=== PATIENT | male | born 1940 | race Caucasian/White ===

== ENCOUNTER → 2024-05-08 14:40 | Outpatient (RCR) | payer OTHER, SELFPAY ==
--- NOTE | 2020-10-19 15:14 | MHC.HEMONC ---
pt daughter, beto, request telehealth due to snow. verbal order for home lab draw given to Alejandra from [facility] ([phone]). CBCD, CMP, AND IMMUNOFIXATION to be drawn by the end of this week and faxed.
--- NOTE | 2020-10-20 11:52 | HO.HEMONCTE1 ---
[facility] Telehealth - Telehealth Location of Provider rendering services: HEM/ONC OFFICE. Location of Patient: HOME. Patient Identification confirmed using: Name, : Yes Telehealth Method: VIA TELEPHONE. Patient verbally consented to treatment: YES Patient verbally consented to billing insurance company: Yes Patient informed of any privacy concerns related to visit: Yes Medical Summary - Medical Summary Date of Service: 10/20/20 Chief complaint: Follow-up for: IgA MGUS. Medical Summary: DIAGNOSIS: IgA MGUS. Interval History Interval history: This is a pleasant 80 year-old gentleman, with whom a tele visit was held. His daughter tells me that he is doing well, now, however he was recently admitted to [facility] October 01 after a syncopal episode. He was noted to have orthostatic hypotension. He has been taken off the amlodipine. He was mildly hyponatremic. With sodium of 130. Fluid restriction to 32 oz a day was recommended however he probably drinks less. He does get tired easily, however he has no specific complaints today. No headache no dizziness nor visual field defects nor other changes. No changes in his smell. Denies any focal weakness. No chest pain or trouble breathing. He denies abdominal pain heartburn nausea or vomiting. His bowels are working without any gross blood in it. He is eating a pureed diet. He has lost weight. He has been going stir crazy. He tries to exercise. He is in good spirits. Rest of the review of systems is unremarkable. Previous history: He was admitted to [facility] in February. He was short of breath. He was noted to be hypoxic. He was diagnosed with Aspiration pneumonia. He has had chronic difficulty swallowing. He underwent a bronchoscopy which revealed lots of secretions and phlegm. He has bad COPD/chronic bronchitis. He was treated for the pneumonia, in house and transferred to [facility] for 14 days. During the course of his hospitalization, he was noted to be hyponatremia. He has been prescribed salt tablets 325 mg twice a day. After returning home he has had visiting nurse services, OT/PT and speech therapy. He recently had a tele visit with Dr. Tian from renal, for hyponatremia. He has initiated a workup. In the past, he was noted to have thyroid problems. His TSH was noted to be elevated at 6.2. He was started on a pill. He was referred to Dr. Dill, from endocrine. He advised him to stop the thyroid pill. He proceeded with the MRI of the brain. That actually showed a benign pituitary tumor. He has been referred to Dr. Axel Hoskins, at [facility]. Appointment is for October 28. Review of Systems - Constitutional Reports no additional constitutional complaints - Eyes Reports no additional eye complaints - ENT Reports no additional ear, nose, mouth, and throat complaints - Cardiovascular Reports no additional cardiovascular complaints - Respiratory Reports no additional respiratory complaints - Gastrointestinal Reports no additional gastrointestinal complaints - Genitourinary Genitourinary: Reports no additional male genitourinary complaints - Musculoskeletal Reports no additional musculoskeletal complaints - Integumentary/Breasts Skin/Breast: Reports no additional skin complaints - Neurologic Reports no additional neurologic complaints - Psychiatric Reports no additional psychiatric complaints - Endocrine Reports no additional endocrine complaints - Hematologic/Lymphatic Reports no additional hematologic/lymphatic complaints - Allergic/Immunologic Reports no additional allergic/immunologic complaints Oncology Screenings - ECOG Performance Status ECOG Performance Status: 1 Home Medications and Allergies Home Medications Medication Instructions Recorded Confirmed Type fluticasone propion-salmeterol INHALATION 10/20/20 History [Advair Diskus] folic acid 1 tab PO DAILY 10/20/20 10/20/20 History Allergies Allergy/AdvReac Type Severity Reaction Status Date / Time No Known Allergies Allergy Unverified 05/28/20 14:46 [No Known Allergies*] Progress Note: A/P (1) MGUS (monoclonal gammopathy of unknown significance) Status: Acute Assessment and plan: Database: From 04/17/2020: WBC 6, HGB 13.6, HCT 40.2, PLT 293. CMP: Lytes WNL, glue 90, BUN 11, GUEST SERVICES ASSISTANT 0.96. TP 8.2, a lb 4.4, Ca 9.4. LFTs: 0.5/65/23/12. Immunoglobulins: IgA 447, IgG 1391, IgM 105. This is a pleasant 80 year-old gentleman, with history of Squamous cell cancer of the tonsil, Status post surgery and radiation therapy. He had pain in his first MCPS. He was seen by rheumatology. A workup was initiated. This revealed an IgA monoclonal gammopathy. DIFFERENTIAL DIAGNOSIS: 1. MGUS: Most likely. 2. LYMPHOMA. 3. AMYLOIDISIS: Least likely. I proceeded with further evaluation. Repeat SIEP: IgG 1139 IgA 397 IgM 93 IMFIXS INTERP IgA kappa monoclonal band present l checked serum free light chain ratio: FREE KAPPA, SER 73.0 FREE LAMBDA SER 42.6 FREE K/L RATIO 1.71 Beta 2 microglobulin checked for prognosis: is 2.5. He is doing reasonably well. I reassured him that most of the time people who have Monoclonal gammopathy can be followed along, without any interventions for prolonged time period. Only about 10-12% may need further intervention. He has had a workup for a benign pituitary tumor. He is being followed at [facility], for that. He has an appointment there next week. I have requested records from Dr. Dill, from [facility]. PLAN: I will recheck labs by [facility] at home next week. He will return in 6 months for a follow-up visit. I wish him the best of luck, with further workup. 25 minutes were spent coordinating his care including the tele interview, review of labs, review of imaging, and counseling the patient. Thank you, CC: Dr. Kenisha Apodaca. Dr. Tian, Renal. - Time Spent With Patient Total time spent is greater than 50% in coordination of care (as documented) at patient's floor/unit and/or counseling patient: 25 - 35 minutes
--- NOTE | 2020-10-20 13:46 | MHC.HEMONC ---
Telehealth exam; follow up in 6 months. Verbal order given from Noemi Hernandez to [facility] for home lab draw on 10/19/20, too be drawn by the end of the week.
== END | disposition home or self-care (01) ==
LOC: HO.ONC 10-20 13:38
PROVIDERS: PCP Internal Medicine; Visit Provider Internal Medicine Medical Oncology
DX: D47.2 Monoclonal gammopathy (principal); Z85.89 Personal history of malignant neoplasm of other organs and systems
CPT/HCPCS: 99214